=== PATIENT | male | born 1960 | race Caucasian/White ===

== ENCOUNTER 2018-05-09 08:44 | Emergency (ER) | payer SELFPAY ==
[~2018-05-09] VITALS: Ht 167.6 cm; Wt 69.9 kg
[2018-05-09 08:54] VITALS: Ht 167.6 cm; Wt 69.9 kg
[2018-05-09 11:25] VITALS: BP 146/78
== END 2018-05-09 11:25 | disposition home or self-care (01) ==
LOC: ED 08:44
DX: S09.90XA Unspecified injury of head, initial encounter (principal); M54.2 Cervicalgia; G93.89 Other specified disorders of brain; M47.892 Other spondylosis, cervical region; E11.9 Type 2 diabetes mellitus without complications; Z85.07 Personal history of malignant neoplasm of pancreas; V49.9XXA Car occupant (driver) (passenger) injured in unspecified traffic accident, initial encounter; Y93.I9 Activity, other involving external motion; Y92.488 Other paved roadways as the place of occurrence of the external cause; Y99.8 Other external cause status